=== PATIENT | female | born 1970 | race Caucasian/White ===

== ENCOUNTER 2025-01-05 11:45 | Emergency (ER) | payer MEDICAID ==
[~2025-01-05] VITALS: Ht 152.4 cm; Wt 83.0 kg
[2025-01-05 11:54] VITALS: O2SAT 99
[2025-01-05 12:11] LABS: BASOPHILS % 0.3 % (0.0-2.0); EOSINOPHILS % 1.1 % (0.0-5.0); HEMATOCRIT. 39.2 % (36.0-48.0); HEMOGLOBIN. 12.9 g/dL (12.0-16.0); LYMPHOCYTES % 31.5 % (20.0-50.0); MEAN PLATELET VOLUME 10.8 fl (7.4-10.4); MONOCYTES % 8.3 % (2.0-8.0); NEUTROPHILS % 58.8 % (40.0-76.0); PLATELET 175 x1000/uL (130-400); RED BLOOD CELL COUNT 4.37 mill/uL (4.2-5.4); RED CELL DISTRIBUTION WIDTH 13.8 % (11.6-14.6)
[2025-01-05 12:38] LABS: CREATININE 0.8 mg/dL (0.6-1.0); UREA NITROGEN BLOOD 17 mg/dL (9-23)
[2025-01-05 12:52] LABS: CLARITY URINE CLEAR (CLEAR); COLOR URINE YELLOW (YELLOW); GLUCOSE URINE NEGATIVE (NEGATIVE); KETONES URINE NEGATIVE (NEGATIVE); LEUKOCYTE ESTERASE URINE TRACE (NEGATIVE); NITRITE URINE NEGATIVE (NEGATIVE); OCCULT BLOOD URINE NEGATIVE (NEGATIVE); PH URINE 6.5 (4.5-8.0); PROTEIN URINE NEGATIVE (NEGATIVE); SPECIFIC GRAVITY URINE 1.022 (1.005-1.030); UROBILINOGEN URINE 0.2 E.U./dL (0.2-1.0)
[2025-01-05 13:05] LABS: TROPONIN I HIGH SENSITIVITY 6 ng/L (3.0-34)
[2025-01-05 13:06] LABS: ASPARTATE AMINOTRANSFERASE 19 IU/L (<34)
[2025-01-05 13:07] LABS: BILIRUBIN DIRECT 0.2 mg/dL (<=3.0); BILIRUBIN TOTAL 0.6 mg/dL (0.1-1.0); PROTEIN TOTAL 6.9 g/dL (6.0-8.3)
[2025-01-05 13:13] LABS: HCG SCREEN NEGATIVE
[2025-01-05] MEDS: SODIUM CHLORIDE 0.9% 1,000 ML IV ONE ×2 (13:15→13:39)
[2025-01-05 13:23] LABS: INR 1.0
[2025-01-05 13:29] LABS: SQUAMOUS EPITHELIAL CELL URINE 2+ /lpf (RARE/1+)
[2025-01-05 13:30] LABS: BACTERIA URINE TRACE; RBC URINE NONE SEEN /hpf (0-2)
[2025-01-05] MEDS: DIPHENHYDRAMINE 50MG/ML VIAL IV ONE (13:38)
[2025-01-05] MEDS: METOCLOPRAMIDE HCL 10MG/2ML VIAL IV ONE (13:38)
[2025-01-05] MEDS: KETOROLAC 15MG/ML VIAL IV ONE (13:39)
[2025-01-05] MEDS ORDERED: IBUP-2028 MT (16:40)
[2025-01-05] MEDS ORDERED: NITR-87 MT (16:40)
[2025-01-05] MEDS ORDERED: CEFTRIAXONE 1,000 MG in DEXT 5% WATER 100 ML IV STA (16:44)
[2025-01-05] MEDS: CEFTRIAXONE 1GM/50ML 50ML IV SCH (17:19)
[2025-01-05] MEDS: LORAZEPAM 2MG/ML UD SYRINGE IV SCH (21:45)
[2025-01-05] MEDS ORDERED: IOHEXOL-350 100 ML BOTTLE ONE (23:19)
[2025-01-05 23:30] VITALS: BP 117/60; PULSE 68; RESP 20; TEMP 36.9; O2SAT 96
== END 2025-01-05 23:38 | disposition still patient (30) ==
LOC: ER 11:45 → EDBEDREQ 12:44 → ER 23:38 → CMPBEDREQ 01-06 07:23
DX: R51.9 Headache, unspecified (principal); R42 Dizziness and giddiness; R06.02 Shortness of breath; Q27.9 Congenital malformation of peripheral vascular system, unspecified; Z79.899 Other long term (current) drug therapy
CPT/HCPCS: 80076; 80048; 81003; 84703; 87430; 83880; 85025; 85379; 85610; 85730; 87086; 84484; 87070; 36415; 71045; 70496; 70450; 70544; 70553; 93005; 96361; 96365; 96375; 99285; Q9967; J0696; J1200; J1885; J2060; J2765; J7030; Z7610 ×4; A4606